=== PATIENT | female | born 1960 | race Caucasian/White ===

== ENCOUNTER → 2017-12-19 | Outpatient (CLI) | payer MEDICAID, OTHER | LOC: M RAD 11:17 | DX: I87.393 Chronic venous hypertension (idiopathic) with other complications of bilateral lower extremity (principal); I70.213 Atherosclerosis of native arteries of extremities with intermittent claudication, bilateral legs | CPT/HCPCS: 93923 ==

== ENCOUNTER → 2018-01-07 | Outpatient (CLI) | payer OTHER ==
[2018-01-07 16:06] LABS: BASO # 0.1 10^3/uL (0.0-0.2); BASO % 0.8 % (0.0-1.0); EOS # 0.3 10^3/uL (0.0-0.50); EOS % 3.9 % (0.0-3.0); HEMATOCRIT 34.2 % (36.0-47.0); HEMOGLOBIN 11.2 g/dl (12.0-16.0); IMMATURE GRANULOCYTE % 0.4 % (0-3.0); LYMPH # 2.1 10^3/uL (1.5-4.5); LYMPH % 25.2 % (24.0-44.0); MEAN CORPUSCULAR HEMOGLOBIN 28.4 pg (27.0-33.0); MEAN CORPUSCULAR HGB CONC 32.7 g/dl (32.0-36.5); MEAN CORPUSCULAR VOLUME 86.6 fl (80.0-96.0); MONO # 0.7 10^3/uL (0.0-0.8); MONO % 8.3 % (0.0-5.0); NEUTROPHILS # 5.1 10^3/uL (1.8-7.7); NEUTROPHILS % 61.4 % (36.0-66.0); PLATELET COUNT, AUTOMATED 202 10^3/uL (150-450); RED BLOOD COUNT 3.95 10^6/uL (4.00-5.40); RED CELL DISTRIBUTION WIDTH 14.2 % (11.5-14.5); WHITE BLOOD COUNT 8.3 10^3/uL (4.0-10.0)
[2018-01-07 16:25] LABS: ANION GAP 6 MEQ/L (8-16); BLOOD UREA NITROGEN 25 MG/DL (7-18); CALCIUM LEVEL 8.4 MG/DL (8.5-10.1); CARBON DIOXIDE LEVEL 29 MEQ/L (21-32); CHLORIDE LEVEL 108 MEQ/L (98-107); CREATININE FOR GFR 0.71 MG/DL (0.55-1.30); GLOMERULAR FILTRATION RATE > 60.0 (>51); GLUCOSE, FASTING 128 MG/DL (70-100); POTASSIUM SERUM 4.2 MEQ/L (3.5-5.1); SODIUM LEVEL 143 MEQ/L (136-145)
== END ==
LOC: M LAB 15:48
DX: F17.218 Nicotine dependence, cigarettes, with other nicotine-induced disorders (principal)
CPT/HCPCS: 80048

== ENCOUNTER 2018-01-14 06:28 | Outpatient (CLI) | payer OTHER ==
[2018-01-14] MEDS ORDERED: fentaNYL 100 MCG/2 ML INJECTION (J3010) As Ordered (06:39)
[2018-01-14] MEDS ORDERED: MIDAZOLAM INJ 2 MG/2 ML VIAL (J2250) As Ordered (06:39)
[2018-01-14] MEDS ORDERED: ISOVUE-300 61% 50ML VIAL (Q9967) As Ordered (06:40)
[2018-01-14] MEDS ORDERED: HEPARIN 1,000 UNITS/ML 10ML VIAL (FOR RADIOLOGY& DIALYSIS ONLY) As Ordered (06:40)
[2018-01-21] MEDS ORDERED: PROTAMINE SULF INJ 50 MG/5 ML VIAL (J2720) As Ordered (09:08)
[2018-01-21] MEDS ORDERED: HEPARIN 1,000 UNITS/ML 10ML VIAL (FOR RADIOLOGY& DIALYSIS ONLY) As Ordered (09:08)
[2018-01-21] MEDS ORDERED: MIDAZOLAM INJ 2 MG/2 ML VIAL (J2250) As Ordered (09:08)
[2018-01-21] MEDS ORDERED: fentaNYL 100 MCG/2 ML INJECTION (J3010) As Ordered (09:08)
[2018-01-21] MEDS ORDERED: ISOVUE-300 61% 50ML VIAL (Q9967) As Ordered (09:09)
== END 2018-01-21 | disposition home or self-care (01) ==
LOC: M IRPRO 06:28
DX: I70.213 Atherosclerosis of native arteries of extremities with intermittent claudication, bilateral legs (principal); I70.0 Atherosclerosis of aorta; I25.10 Atherosclerotic heart disease of native coronary artery without angina pectoris; E10.9 Type 1 diabetes mellitus without complications; I10 Essential (primary) hypertension; E78.5 Hyperlipidemia, unspecified; Z95.1 Presence of aortocoronary bypass graft
CPT/HCPCS: 36247

== ENCOUNTER → 2018-02-01 | Outpatient (CLI) | payer OTHER ==
[~2018-02-01] MED LIST: HEPARIN 1,000 UNITS/ML 10ML VIAL (FOR RADIOLOGY& DIALYSIS ONLY) As Ordered; ISOVUE-300 61% 50ML VIAL (Q9967) As Ordered; MIDAZOLAM INJ 2 MG/2 ML VIAL (J2250) As Ordered; fentaNYL 100 MCG/2 ML INJECTION (J3010) As Ordered
== END | disposition home or self-care (01) ==
LOC: M IRPRO 06:30
DX: I70.221 Atherosclerosis of native arteries of extremities with rest pain, right leg (principal); E10.9 Type 1 diabetes mellitus without complications; I10 Essential (primary) hypertension; I25.10 Atherosclerotic heart disease of native coronary artery without angina pectoris; F17.210 Nicotine dependence, cigarettes, uncomplicated; Z95.1 Presence of aortocoronary bypass graft
CPT/HCPCS: 37225

== ENCOUNTER 2018-02-20 07:24 | Outpatient (CLI) | payer OTHER ==
[2018-02-20 08:34] LABS: ANION GAP 4 MEQ/L (8-16); BLOOD UREA NITROGEN 25 MG/DL (7-18); CALCIUM LEVEL 8.5 MG/DL (8.5-10.1); CARBON DIOXIDE LEVEL 29 MEQ/L (21-32); CHLORIDE LEVEL 110 MEQ/L (98-107); CREATININE FOR GFR 0.83 MG/DL (0.55-1.30); GLOMERULAR FILTRATION RATE > 60.0 (>51); GLUCOSE, FASTING 176 MG/DL (70-100); POTASSIUM SERUM 4.1 MEQ/L (3.5-5.1); SODIUM LEVEL 143 MEQ/L (136-145)
[2018-02-20] MEDS ORDERED: MIDAZOLAM INJ 2 MG/2 ML VIAL (J2250) As Ordered (08:37)
[2018-02-20] MEDS ORDERED: ISOVUE-300 61% 50ML VIAL (Q9967) As Ordered (08:37)
[2018-02-20] MEDS ORDERED: HEPARIN 1,000 UNITS/ML 10ML VIAL (FOR RADIOLOGY& DIALYSIS ONLY) As Ordered (08:37)
[2018-02-20] MEDS ORDERED: fentaNYL 100 MCG/2 ML INJECTION (J3010) As Ordered (08:37)
[2018-03-06] MEDS ORDERED: ISOVUE-300 61% 50ML VIAL (Q9967) As Ordered (08:38)
[2018-03-06] MEDS ORDERED: fentaNYL 100 MCG/2 ML INJECTION (J3010) As Ordered (08:38)
[2018-03-06] MEDS ORDERED: MIDAZOLAM INJ 2 MG/2 ML VIAL (J2250) As Ordered (08:39)
[2018-03-06] MEDS ORDERED: HEPARIN 1,000 UNITS/ML 10ML VIAL (FOR RADIOLOGY& DIALYSIS ONLY) As Ordered (09:02)
== END 2018-03-06 | disposition home or self-care (01) ==
LOC: M IRPRO 07:24
DX: I70.212 Atherosclerosis of native arteries of extremities with intermittent claudication, left leg (principal)
CPT/HCPCS: 37224

== ENCOUNTER → 2018-04-22 | Outpatient (CLI) | payer OTHER | LOC: M RAD 07:16 | DX: I70.213 Atherosclerosis of native arteries of extremities with intermittent claudication, bilateral legs (principal) | CPT/HCPCS: 93925 ==

== ENCOUNTER → 2019-01-03 | Outpatient (CLI) | payer OTHER ==
--- NOTE | 2019-01-04 07:55 | REP ---
BILATERAL LOWER EXTREMITY DUPLEX DOPPLER ARTERIAL ULTRASOUND: Real-time sonographic evaluation and duplex Doppler interrogation of bilateral lower extremity arterial systems is performed. XAVIER right is 1.05 and left 1.07. There is moderate plaquing throughout both lower extremity arterial systems. Triphasic and biphasic waveforms are seen throughout both lower extremities through the popliteal arteries and also proximal anterior tibial artery, with monophasic waveforms in the remaining calf arteries bilaterally. There is somewhat increase flow velocity in the left popliteal artery and tibioperoneal trunk suggesting mild stenosis involving these vessels. Right Peak Left Peak Systolic Velocity Systolic velocity Common femoral artery 117.6 cm/s 124.0 cm/s Profunda 76.8 cm/s 125.1 cm/s Proximal SFA 101.5 cm/s 129.2 cm/s Mid SFA 99.9 cm/s 100.1 cm/s Distal SFA 99.4 cm/s 129.8 cm/s Popliteal 126.1 cm/s 147.1 cm/s Proximal LACIE 42.5 cm/s 110.8 cm/s Tibioperoneal trunk 105.7 cm/s 138.8 cm/s Proximal MANAGEMENT ENGINEER 89.8 cm/s 177.7 cm/s Distal MANAGEMENT ENGINEER 74.5 cm/s 76.8 cm/s Distal LACIE 22.7 cm/s 41.1 cm/s IMPRESSION: Moderate plaquing and narrowing bilaterally with possible mild stenosis of the left popliteal artery and tibioperoneal trunk. Electronically Signed by Aung Perez MD 01/08/2019 09:40 A
== END ==
LOC: M RAD 13:29
PROVIDERS: ATTEND Surgery Vascular Surgery
DX: I70.213 Atherosclerosis of native arteries of extremities with intermittent claudication, bilateral legs (principal)

== ENCOUNTER → 2019-08-12 | Outpatient (CLI) | payer OTHER ==
--- NOTE | 2019-08-12 19:13 | REP ---
Clinical: Symptoms related to atherosclerotic disease and intermittent claudication. Comparison: 01/03/2019 Technique: Real time perez scale and color Doppler evaluation of the bilateral lower extremity arterial vasculature using linear high frequency transducer. Findings: Perez scale and color images demonstrate mild amounts of atheromatous plaquing noted bilaterally with moderate to severe stenosis involving the distal left anterior tibial artery. Peak systolic velocities (cm/sec) RIGHT LEFT Common femoral artery 105 biphasic 136 triphasic Profunda femoris 91 biphasic 145 biphasic SFA (proximal) 95 triphasic 139 triphasic SFA (mid) 115 triphasic 85 triphasic SFA (distal) 83 triphasic 128 triphasic Popliteal artery 97 triphasic 74 triphasic LACIE (prox.) 53 biphasic 89 biphasic Tibioperoneal trunk 82 triphasic 151 triphasic MEDICAL RECORD TECHNICIAN (prox.) 119 triphasic 77 monophasic MEDICAL RECORD TECHNICIAN (distal) 91 monophasic 83 monophasic LACIE (distal) 117 monophasic 269 monophasic Impression: Atheromatous changes with moderate to severe stenosis through the left distal anterior tibial artery. Electronically Signed by Coleman Redmond MD 08/12/2019 07:05 P
== END ==
LOC: M RAD 12:58
PROVIDERS: ATTEND Physician Assistant
DX: I70.213 Atherosclerosis of native arteries of extremities with intermittent claudication, bilateral legs (principal)

== ENCOUNTER → 2020-02-19 | Outpatient (CLI) | payer OTHER ==
--- NOTE | 2020-02-20 02:39 | REP ---
Clinical: Symptoms related to atherosclerotic disease and intermittent claudication. Technique: Real time perez scale and color Doppler evaluation of the bilateral lower extremity arterial vasculature using linear high frequency transducer. Findings: Perez scale and color images demonstrate mild to moderate amounts of atheromatous plaquing with suggestions of narrowing through the bilateral mid to distal calf vessels which demonstrate monophasic wave patterns as well as decreased flow through the distal anterior tibial arteries with increased diastolic component. Triphasic and biphasic wave patterns noted through the bilateral lower extremities to the level of the popliteal arteries and proximal calves. Peak systolic velocities (cm/sec) RIGHT LEFT XAVIER 1.0 1.0 Common femoral artery 130 98 Profunda femoris 114 84 SFA (proximal) 127 123 SFA (mid) 142 109 SFA (distal) 90 102 Popliteal artery 122 111 LACIE (prox.) 54 49 Tibioperoneal trunk 101 168 (monophasic) BIOLOGICAL SCIENCE TECHNICIAN FISH (prox.) 107 (monophasic) 116 (monophasic) BIOLOGICAL SCIENCE TECHNICIAN FISH (distal) 133 (monophasic) 90 (monophasic) LACIE (distal) 16 (monophasic) 39 (monophasic) Impression: Atheromatous changes with findings as described above. No discrete area of stenosis or occlusion. Electronically Signed by Coleman Redmond MD 02/20/2020 02:30 A
== END ==
LOC: M RAD 09:50
PROVIDERS: ATTEND Physician Assistant
DX: I70.213 Atherosclerosis of native arteries of extremities with intermittent claudication, bilateral legs (principal)

== ENCOUNTER → 2020-06-17 | Outpatient (CLI) | payer MEDICARE, MEDICAID ==
--- NOTE | 2020-07-06 17:14 | REP ---
BILATERAL LOWER EXTREMITY ARTERIAL DOPPLER ULTRASOUND HISTORY: Atherosclerosis. Claudication bilateral legs. FINDINGS: Ankle brachial indices are measured at 1.22 on the right and 1.28 on the left. The vessels are relatively noncompressible and these numbers may be overestimated. Moderate plaquing is seen bilaterally. Biphasic arterial waveforms are observed for the most part in the lower extremities bilaterally. Monophasic waveform is observed in the distal LACIE on the right. The distal LACIE on the right is occluded and reverse flow is seen here. No stenosis or other occlusion is appreciated. VELOCITY CHART BILATERAL LOWER EXTREMITIES RIGHT (cm/s) LEFT (cm/s) FOOD PROCESSING PLANT MANAGER 100 129 Profunda 100 161 Proximal SFA 94 121 Mid SFA 73 75 Distal SFA 87 73 Popliteal 98/78 101/113 Proximal LACIE 62 70 Tibioperoneal trunk 81 127 Proximal CLOTH WASHER BACK TENDER 104 111 Distal CLOTH WASHER BACK TENDER 102 84 Distal LACIE Occluded/29 reverse 92 MTDD
== END ==
LOC: M RAD 10:15
PROVIDERS: ATTEND Physician Assistant
DX: I70.213 Atherosclerosis of native arteries of extremities with intermittent claudication, bilateral legs (principal)

== ENCOUNTER → 2021-01-21 | Outpatient (CLI) | payer MEDICARE, MEDICAID ==
--- NOTE | 2021-01-21 15:12 | REP ---
INDICATION: CLAUDICATION. COMPARISON: None. 06/17/2020. TECHNIQUE: Bilateral lower extremity duplex ultrasound of the lower extremity arteries. FINDINGS: Right lower extremity: Brachial peak systole: 170 mmHg Dorsalis pedis peak systole: 140 mmHg EARLY CHILDHOOD EDUCATION COORDINATOR peak systole: The 150 mmHg XAVIER: 0.8 MANAGER HVAC: 102 velocity, to try phase phasicity Profunda: Sick 84.4 velocity, biphasic phasicity SFA prox: 109 velocity, biphasic phasicity SFA mid: 102 velocity, biphasic phasicity SFA dist: 80.6 velocity, biphasic phasicity Pop: 87.6 velocity, six biphasic phasicity LACIE prox: 60.8 velocity, biphasic phasicity Tib/P tr: 42.7 velocity, biphasic phasicity EARLY CHILDHOOD EDUCATION COORDINATOR pr: A 3.1 velocity, biphasic phasicity EARLY CHILDHOOD EDUCATION COORDINATOR dst: 59.0 velocity, biphasic phasicity LACIE dst: 13.5 velocity, biphasic phasicity Left lower extremity: Brachial peak systole: 165 mmHg Dorsalis pedis peak systole: 150 mmHg EARLY CHILDHOOD EDUCATION COORDINATOR peak systole: The 145 mmHg XAVIER: Next 0.8 MANAGER HVAC: 89.5 velocity, by phase phasicity Profunda: Sick 148 velocity, 8 biphasic phasicity SFA prox: 103 velocity, triphasic phasicity SFA mid: 90.1 velocity, triphasic phasicity SFA dist: 103 velocity, the biphasic phasicity Pop: 95.5 velocity, the biphasic phasicity LACIE prox: 39.7 velocity, the biphasic phasicity Tib/P tr: 110 velocity, biphasic phasicity EARLY CHILDHOOD EDUCATION COORDINATOR pr: 61.9 velocity, biphasic phasicity EARLY CHILDHOOD EDUCATION COORDINATOR dst: 49.7 velocity, biphasic phasicity LACIE dst: 38.4 velocity, biphasic phasicity IMPRESSION: There is calcified mild to moderate atheromatous plaque bilaterally. No significant change from the prior study. <Electronically signed by Aung Powell > 01/21/21 [id number]
== END ==
LOC: M RAD 12:27
PROVIDERS: ATTEND Physician Assistant
DX: I70.213 Atherosclerosis of native arteries of extremities with intermittent claudication, bilateral legs (principal)

== ENCOUNTER → 2022-08-28 | Outpatient (CLI) | payer MEDICARE, MEDICAID | LOC: M RAD 14:17 | PROVIDERS: ATTEND Surgery Vascular Surgery | DX: I73.9 Peripheral vascular disease, unspecified (principal) ==